=== PATIENT | female | born 1940 | race Caucasian/White ===

== ENCOUNTER 2018-05-10 07:30 | Inpatient (IN) ==
[2018-05-05 16:42] LABS: Appearance,Urine HAZY; Bacteria,Urine 0 /hpf (0); Bilirubin,Urine NEG (NEG); Color,Urine YELLOW; Glucose,Urine (UA) NEGATIVE (NEG); Leukocyte Esterase,Urine 500 /uL (NEG); Mucus,Urine FEW /hpf (0); Protein,Urine NEG (NEG); Specific Gravity,Urine 1.013 (1.000-1.035); Urine Blood 0.03 mg/dL (<0.03); Urine Hyaline Cast 3 /lpf (0-2); Urine RBC 9 /hpf (0-1); Urine Squamous Epithelial Cell 4 /hpf (0-4); Urine Transitional Epi Cells 2 /hpf (0-2); Urine WBC > 182 /hpf (0-4); Urobilinogen,Urine NEG (NEG)
[2018-05-05 17:08] LABS: Basophils # (Auto) 0.1 K/mcL (0.0-0.3); Basophils % (Auto) 0.6 % (0.0-2.0); Eosinophils # (Auto) 0.2 K/mcL (0.0-0.7); Granulocytes % (Auto) 67.2 % (38.0-78.0); Lymphocytes # (Auto) 2.1 K/mcL (1.5-4.8); Lymphocytes % (Auto) 21.8 % (15.5-49.0); Mean Corpuscular HGB Conc 33.1 g/dL (31.0-36.0); Monocytes # (Auto) 0.8 K/mcL (0.1-0.9); Monocytes % (Auto) 8.4 % (1.0-12.0); Platelet Count 321 K/mcL (140-440); RBC 4.75 M/mcL (4.00-5.20); Red Cell Distribution Width 13.8 % (11.5-14.5)
[2018-05-05 17:23] LABS: Blood Urea Nitrogen 19 mg/dl (8-23)
[~2018-05-10 07:30] MED LIST: CELECOXIB 200 MG CAPSULE PO SCH; PREGABALIN 75 MG CAPSULE PO SCH; ceFAZolin 1 GM VIAL IV SCH; oxyCODONE 10 MG TAB.ER.12H PO SCH
[2018-05-10] MEDS ORDERED: GENTAMICIN SULFATE 800 MG/20 ML VIAL IR ONE (13:08)
[2018-05-10] MEDS ORDERED: BENZOCAINE/MENTHOL 1 LOZENGE PO PRN ×2 (14:00→14:10)
[2018-05-10] MEDS ORDERED: IPRATROPIUM/ALBUTEROL 3 ML AMPUL.NEB NEB PRN (14:00)
[2018-05-10] MEDS ORDERED: METHOCARBAMOL 1,000 MG/10 ML VIAL IV PRN (14:00)
[2018-05-10] MEDS ORDERED: fentaNYL 100 MCG/2 ML VIAL IV PRN (14:00)
[2018-05-10] MEDS ORDERED: KETOROLAC 30 MG/ML VIAL IV PRN ×2 (14:00→14:10)
[2018-05-10] MEDS ORDERED: LACTATED RINGERS 1,000 ML IV SCH (14:00)
[2018-05-10] MEDS ORDERED: NALOXONE HCL 0.4 MG/ML VIAL IV PRN (14:00)
[2018-05-10] MEDS ORDERED: ACETAMINOPHEN 1,000 MG/100 ML BOTTLE IV ONE (14:00)
[2018-05-10] MEDS ORDERED: ONDANSETRON 4 MG/2 ML VIAL IV PRN ×2 (14:00→14:10)
[2018-05-10] MEDS ORDERED: LACTATED RINGERS 250 ML IV PRN (14:00)
[2018-05-10] MEDS ORDERED: FLUMAZENIL 0.1 MG/ML ML IV PRN (14:00)
--- NOTE | 2018-05-10 14:08 | Brief Operative Note ---
Pre-op diagnosis: right hip osteoarthritis Post-op diagnosis: same Procedure: right total hip arthroplasty Grafts/Implants: Yes Anesthesia: spinal Complications: none Surgeon: Hermes Davis Rn Document Improvement Specialist: Nirmala Fairchild Estimated blood loss (cc): 250 Specimens Removed/Pathology: none sent Condition: stable Disposition: PACU
[2018-05-10] MEDS ORDERED: POLYETHYLENE GLYCOL 3350 17 GM PACKET PO PRN (14:10)
[2018-05-10] MEDS ORDERED: FLEETS ADULT ENEMA PR PRN (14:10)
[2018-05-10] MEDS ORDERED: MAGNESIUM HYDROXIDE 30 ML ORAL.SUSP PO PRN (14:10)
[2018-05-10] MEDS ORDERED: TRANEXAMIC ACID 1,000 MG/10 ML VIAL IV ONE ×2 (14:10→14:43)
[2018-05-10] MEDS ORDERED: BISACODYL 10 MG SUPP.RECT PR PRN (14:10)
--- NOTE | 2018-05-10 15:18 | XRay Report ---
HISTORY: Postop after right hip arthroplasty FINDINGS: There is a well-positioned newly inserted right total hip prosthesis. There is no fracture or abnormal soft tissue calcification. There is a pre-existing indwelling left hip prosthesis. There has been significant loss of bone around the femoral component of the prosthesis resulting in proximal retraction of the femoral shaft. Greater trochanter is from the femur, retracted superiorly and now abuts the lateral margin of the prosthetic acetabulum. There are broken cerclage wires around the greater trochanter. This is a new finding since 06/16/11. The acetabular component is normal. 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 IMPRESSION: Well-positioned newly inserted right hip prosthesis. Resorption of bone and remodeling of the proximal shaft of the left femur, surrounding the femoral component of the left hip prosthesis Interpreted and Authenticated by: Santos Doan 05/10/18
--- NOTE | 2018-05-10 15:18 | Operative Note ---
DATE OF OPERATION: 05/10/2018 PREOPERATIVE DIAGNOSIS: Degenerative joint disease, right hip. POSTOPERATIVE DIAGNOSIS: Degenerative joint disease, right hip. PROCEDURE PERFORMED: Right total hip arthroplasty. SURGEON: Randall Davis M.D. FACULTY RESEARCH ASSISTANT SURGEON: Nirmala Fairchild PA-C. ANESTHESIA: Spinal with LMA assist. ESTIMATED BLOOD LOSS: 250 mL. COMPLICATIONS: None noted. SPECIMENS REMOVED: None. DRAINS: None. IMPLANTS: DePuy Addison Hole Eliminator PS; DePuy Homewood Gription acetabular shell 54 mm; DePuy [place]wood Altrx polyethylene acetabular liner neutral 36 x 54; DePuy femoral stem Actis Duofix cementless prosthesis size 8 standard collar; DePuy Biolox delta ceramic femoral head +5, 36 mm diameter. INDICATIONS: The patient has had a longstanding history of worsening pain in the hip that has failed conservative treatment. Radiographs have confirmed advanced degenerative joint disease. After a long discussion about treatment options, the patient elected to proceed with a hip arthroplasty. The risks and benefits were discussed with the patient in detail including, but not limited to, the risks of anesthesia, problems with the heart or lungs related to anesthesia, infection, compromise or injury to the nerves and blood vessels, deep venous thrombosis, pulmonary embolism, pneumonia, continued pain after surgery, worsening pain or symptoms after surgery, swelling, loss of motion, instability, leg length discrepancy, and need for repeat surgery. DESCRIPTION OF PROCEDURE: The patient was seen in pre-anesthesia waiting room where all questions were answered and the correct side and site were identified and marked. The patient was then brought to the operating room and administered the anesthetic and given pre-operative antibiotics. A time-out was then called. The patient was placed in the lateral decubitus position with all prominences well-padded using the Miracle frame and the extremity was prepped and draped in the usual sterile fashion. Anesthesia gave the patient 1 gm of tranexamic acid via an intravenous route. A standard posterior approach was made. We dissected through the skin and subcutaneous tissue to the deep fascia. The deep fascia was split in line with the incision and a Charnley retractor was placed. We exposed, tagged, and incised the short external rotators and piriformis tendon and retracted them posteriorly to help protect the sciatic nerve which was palpated throughout the case. We then performed a T-capsulotomy and tagged the capsule edges. Prior to dislocating the hip, we set a length and offset gauge from a Steinmann pin in the iliac wing to a ankit on the greater trochanter. The hip was then dislocated and a femoral neck osteotomy was performed to the pre-surgical templated level off the lesser trochanter. The head was removed and sized. We next turned our attention to the acetabulum. Retractors were placed for optimal visualization. A complete labral excision was performed. The capsule was preserved for later closure. We began reaming using anatomic landmarks with the DePuy Homewood acetabular system. We medialized the cup and reamed up to provide good fill and coverage of the trial. When the trial was stable and appropriately positioned with approximately 20 degrees of anteversion and 45 degrees of abduction, we impacted the DePuy Homewood cup and placed a cancellous screw in the posterior-superior quadrant. Osteophytes were removed from around the shell. We placed the trial liner and turned our attention to the femur. We placed retractors for visualization, internally rotated the femur, and established intramedullary access. We broached using the DePuy Actis stem to a stable platform medial, lateral, and rotationally with the appropriate version. We then performed a calcar reaming off the broach. Trials were then placed and optimized for leg length and stability. We used the leg length and offset guide to confirm our trials. Best stability, length, and offset characteristics were obtained with these sizes. We removed all trials and impacted the polyethylene acetabular liner in a standard fashion after a thorough irrigation. We then impacted the femoral stem to its broached location and placed the head. Final reduction was performed. Again, good stability, leg length, and offset characteristics were noted. We irrigated with three liters of antibiotic saline. We closed the capsule with #2 FiberWire. We closed the fascia with a combination of #2 Stratafix and #0 Vicryl. We closed the subcutaneous tissue and skin in layers out to Dermabond on the skin. A sterile pressure dressing and abduction wedge was applied. All needle and sponge counts were correct. The patient was transferred to the recovery room in stable condition. CATRACHITO:alice Job ID: [id number] Doc ID: [id number] Randall Davis MD
[2018-05-10] MEDS: 0.9 % SODIUM CHLORIDE 1,000 ML IV SCH ×2 (15:20→22:50)
[2018-05-10] MEDS: HYDROcodone/APAP 10/325MG TABLET PO PRN ×3 (16:02→21:39)
[2018-05-10] MEDS: METHOCARBAMOL 750 MG TABLET PO PRN (18:28)
[2018-05-10] MEDS: 0.9 % SODIUM CHLORIDE 10 ML SYRINGE IV SCH (21:40)
[2018-05-10] MEDS: SENNOSIDES 1 TABLET PO SCH (21:40)
[2018-05-10] MEDS: DOCUSATE SODIUM 100 MG CAPSULE PO SCH (21:40)
[2018-05-10] MEDS: ASPIRIN 325 MG ENTERIC COATED TABLET PO SCH (21:40)
[2018-05-10] MEDS: ceFAZolin 1 GM VIAL IV SCH (21:40)
[2018-05-11] MEDS: HYDROcodone/APAP 10/325MG TABLET PO PRN ×5 (03:03→22:16)
[2018-05-11] MEDS: ceFAZolin 1 GM VIAL IV SCH (05:47)
[2018-05-11] MEDS: 0.9 % SODIUM CHLORIDE 10 ML SYRINGE IV SCH ×3 (06:46→20:33)
--- NOTE | 2018-05-11 07:46 | Orthopedic Progress Note ---
Subjective Patient information: Note initiated : 05/11/18 at 7:45 am Service Date, if different from initiated Date: [] Patient: Bettie Vigil 78 y/o F admitted on 05/10/18 for Right Total Hip Arthroplasty. Chief Complaint: [] Interval history: doing well. no complaints Objective Vital signs: Vital Signs Temp Pulse Resp BP BP Pulse Ox 05/11/18 03:05 98.3 F 90 12 134/74 95 05/10/18 23:27 98.3 F 79 12 136/65 94 05/10/18 20:24 97.4 F 91 H 12 123/61 94 05/10/18 18:04 80 05/10/18 18:03 82 119/69 96 05/10/18 17:48 84 117/73 94 05/10/18 17:33 82 148/64 94 05/10/18 17:04 84 148/64 90 05/10/18 16:33 80 166/68 97 05/10/18 16:19 79 182/68 92 05/10/18 16:03 80 176/74 95 05/10/18 15:43 80 05/10/18 15:05 97.6 F 80 17 172/43 94 05/10/18 14:50 96.5 F L 80 16 153/41 94 05/10/18 14:35 97.9 F 85 17 164/62 97 05/10/18 14:30 71 13 144/40 100 05/10/18 14:25 74 15 137/35 98 05/10/18 14:21 97.5 F 81 15 133/40 97 05/10/18 11:13 97.5 F 72 18 150/59 97 05/10/18 10:37 97.5 F 72 18 150/59 97 Intake and Output 05/10/18 05/11/18 05/11/18 21:59 05:59 13:59 Intake Total 2650 Output Total 300 Balance 2350 Intake: IV 100 Oral 700 IV - Manual Only 1850 Output: Estimated Blood Loss 300 Other: # Voids 1 Weight 192 lb Intake & Output: Intake & Output 05/10/18 05/11/18 05/11/18 21:59 05:59 13:59 Intake Total 2650 Output Total 300 Balance 2350 Weight 192 lb Intake: IV 100 Oral 700 IV - Manual Only 1850 Output: Estimated Blood Loss 300 Other: # Voids 1 Incision: Yes healing Incision clean and dry: Yes Dressing: Yes clean, Yes dry, Yes intact Weight bearing status: full Neurological exam IM: Yes abnormal gait, Yes alert, Yes oriented X3, Yes motor sensory intact, Yes neurovascular intact Extremities exam IM: No calf tenderness, Yes Foot pink and warm, Yes neurovascular intact - Labs CBC & BMP: 05/11/18 04:52 05/05/18 14:23 Labs: Orthopedic Labs 05/05/18 14:26 PT 12.8 INR 1.0 05/11/18 05/05/18 04:52 14:23 Hgb 13.3 14.5 Hct 39.3 43.7 Assessment and Plan (1) Hip osteoarthritis pod 1 s/p omari wbat pain control dvt prophylaxis d/c planning Status: Acute
--- NOTE | 2018-05-11 07:47 | Discharge Summary ---
Ortho Discharge - TRANG - Patient Instructions Diet: Regular Diet Activity: activity as tolerated, weight bearing as tolerated Total Hip Protocol: Follow activity instructions as provided by Physical Therapy. Dressing Care: May shower in 2 days - Problem Maintenance (1) Hip osteoarthritis Status: Acute - Follow Up Plan Follow Up Appointments: Nirmala Fairchild PA-C [Physician Awning Maker] - 05/25/18 1:40 pm Disposition: Home, Self-Care Prognosis: Good Rehab Potential: Good I certify that the patient requires SNF services: No Overall status at discharge: patient is progressing back to baseline
[2018-05-11] MEDS: ATORVASTATIN 20 MG TABLET PO SCH ×2 (08:06→08:22)
[2018-05-11] MEDS: DILTIAZEM 180 MG CAP.XL.24H PO SCH (08:07)
[2018-05-11] MEDS: DOCUSATE SODIUM 100 MG CAPSULE PO SCH ×2 (08:07→20:32)
[2018-05-11] MEDS: HYDROCHLOROTHIAZIDE 25 MG TABLET PO SCH (08:08)
[2018-05-11] MEDS: LEVOTHYROXINE 88 MCG TABLET PO SCH ×2 (08:09→08:22)
[2018-05-11] MEDS: ASPIRIN 325 MG ENTERIC COATED TABLET PO SCH ×3 (08:09→20:32)
[2018-05-11] MEDS: ONDANSETRON 4 MG ODT TABLET SL PRN (08:15)
[2018-05-11] MEDS ORDERED: RAMIPRIL 20 MG PO SCH (09:00)
[2018-05-11] MEDS: LISINOPRIL 20 MG TABLET PO SCH (09:02)
[2018-05-11] MEDS: 0.9 % SODIUM CHLORIDE 1,000 ML IV SCH ×3 (10:09→20:33)
[2018-05-11] MEDS ORDERED: PHENYLEPHRINE 10 MG/ML VIAL IV ONE (12:35)
[2018-05-11] MEDS ORDERED: ePHEDrine 50 MG/ML AMPUL IV ONE (12:35)
[2018-05-11] MEDS: SENNOSIDES 1 TABLET PO SCH (20:32)
[2018-05-11] MEDS: METHOCARBAMOL 750 MG TABLET PO PRN (22:16)
[2018-05-12] MEDS: HYDROcodone/APAP 10/325MG TABLET PO PRN ×2 (06:24→11:04)
[2018-05-12] MEDS: 0.9 % SODIUM CHLORIDE 1,000 ML IV SCH (06:25)
[2018-05-12] MEDS: 0.9 % SODIUM CHLORIDE 10 ML SYRINGE IV SCH (06:27)
[2018-05-12] MEDS ORDERED: CALCIUM CARBONATE 500 MG TAB.CHEW CHEWED PRN (06:35)
--- NOTE | 2018-05-12 06:47 | Discharge Summary ---
Providers - Providers Patient information: Note initiated : 05/12/18 at 6:45 am Service Date, if different from initiated Date: [] Patient: Bettie Vigil 78 y/o F admitted on 05/10/18 for Right Total Hip Arthroplasty. Chief Complaint: [POD #2 s/p right TRANG] Patient doing quite well this morning. She is complaining of some reflux symptoms and mild nausea. She denies CP, SOB, numbness, tingling Discharge date: 05/12/18 Hospitalization Hospital course: Patient was brought into OR on 05/10/18 for right TRANG which went on without complication. She was admitted for post op care and management. She stayed for a total of two midnights and will discharge to home today. She will follow up in the office for post op care. Discharge diagnosis: hip osteoarthritis Exam - Exam Incision healing: Yes Incision draining: No Incision red: No Incision swollen: No Incision inflamed: No Clean and dry: Yes Weight bearing status: as tolerated Ortho Discharge - TRANG - Patient Instructions Diet: Regular Diet Activity: activity as tolerated, weight bearing as tolerated Total Hip Protocol: Follow activity instructions as provided by Physical Therapy. Patient Education: Hydrocodone/Acetaminophen (By mouth), Aspirin (By mouth), Total Hip Replacement (DC) Additional Instructions: Discharge Instructions: Do the exercises at home that physical therapy gave you throughout the day. Weight bearing as tolerated. Wear comfortable clothing for physical therapy. You are scheduled to start physical therapy at [facility] ([phone]) on May 16 at 9:30 am, please arrive 15 minutes early for paperwork. Take your prescription, photo ID, insurance cards, and current medication list with you to your first physical therapy appointment. Take your prescription to pick out hand any medication. You have Dermabond (a dressing with a mesh-like appearance), DO NOT remove mesh. Cover site daily with gauze dressing. You may start showering on post op day #2. The Dermabond dressing can get wet, do not scrub dressing. Pat dry, then place new dressing (above). To avoid constipation while taking any narcotic pain medication, take an over the counter stool softener/laxative. Use ice packs as directed, on for 20 minutes at a time throughout the day. This and elevation will help with pain and swelling. Call your physician for fevers above 100.5 or pain not controlled by medication. Your prescriptions are with your discharge information. Some medications were electronically transmitted to your pharmacy of choice. Take Aspirin twice daily, for 30 days, as prescribed to prevent blood clots (see medication list). - Follow Up Plan Follow Up Appointments: Nirmala Fairchild PA-C [Physician County Records Management Officer] - 05/25/18 1:40 pm Disposition: Home, Self-Care Prognosis: Good Rehab Potential: Good I certify that the patient requires SNF services: No - Orders For Discharge Prescriptions: Aspirin [Ecotrin] 325 mg PO BID #60 tab.ec HYDROcodone/APAP 10/325MG [[place] 10-325Mg] 1 - 2 tab PO Q4H PRN #60 tab PRN Reason: Pain Ondansetron [Zofran ODT] 4 mg SL Q4HP PRN #30 tablet PRN Reason: Nausea And Vomiting Additional Discharge Orders: Physical Therapy at Discharge - TRANG Location: None Selected Toilet Riser Discharge Order Location: None Selected Walker Location: None Selected Pending Studies Resuscitation Status Full Code Diet Regular Diet Start WedMay 10 1412 Hydrocodone Bitart/Acetaminophen ([place] 10/325mg) 0 tab PO Q4HP PRN PRN Reason: PAIN LEVEL 3-6 Last Admin: 05/12/18 06:24 Dose: 1 tab Documented by: Admin: 05/11/18 22:16 Dose: 1 tab Documented by: Admin: 05/11/18 17:41 Dose: 2 tab Documented by: ORLYGera Admin: 05/11/18 13:09 Dose: 2 tab Documented by: RICCARDO Cosigned by: ORLYGera Admin: 05/11/18 09:02 Dose: 2 tab Documented by: ORLYGera Admin: 05/11/18 03:03 Dose: 2 tab Documented by: Admin: 05/10/18 21:39 Dose: 2 tab Documented by: Admin: 05/10/18 16:54 Dose: 1 tab Documented by: Admin: 05/10/18 16:02 Dose: 1 tab Documented by: ALTHEA Aspirin (Ecotrin) 325 mg PO BID [facility] Last Admin: 05/11/18 20:32 Dose: 325 mg Documented by: Admin: 05/11/18 08:23 Dose: 325 mg Documented by: RICCARDO Cosigned by: MARIZOL Admin: 05/10/18 21:40 Dose: 325 mg Documented by: EMEKA Atorvastatin Calcium (Lipitor) 20 mg PO DAILY [facility] Last Admin: 05/11/18 08:22 Dose: 20 mg Documented by: RICCARDO Cosigned by: MARIZOL Diltiazem HCl (Cardizem Cd) 360 mg PO DAILY [facility] Last Admin: 05/11/18 08:07 Dose: 360 mg Documented by: RICCARDO Cosigned by: MARIZOL Docusate Sodium (Colace) 100 mg PO BID [facility] Last Admin: 05/11/18 20:32 Dose: 100 mg Documented by: Admin: 05/11/18 08:07 Dose: 100 mg Documented by: RICCARDO Cosigned by: MARIZOL Admin: 05/10/18 21:40 Dose: 100 mg Documented by: EMEKA Hydrochlorothiazide (Oretic) 25 mg PO DAILY [facility] Last Admin: 05/11/18 08:08 Dose: 25 mg Documented by: RICCARDO Cosigned by: MARIZOL Sodium Chloride (Sodium Chloride 0.9%) 1,000 mls @ 125 mls/hr IV .Q8H [facility] Last Admin: 05/12/18 06:25 Dose: Not Given Documented by: Admin: 05/11/18 20:33 Dose: Not Given Documented by: Admin: 05/11/18 15:47 Dose: Not Given Documented by: Talia Admin: 05/11/18 10:09 Dose: Not Given [facility]: [facility] Admin: 05/10/18 22:50 Dose: Not Given Documented by: Admin: 05/10/18 15:20 Dose: 125 mls/hr Documented by: ALTHEA Levothyroxine Sodium (Synthroid) 88 mcg PO ACB [facility] Last Admin: 05/11/18 08:22 Dose: 88 mcg Documented by: RICCARDO Cosigned by: MARIZOL Lisinopril (Zestril) 40 mg PO DAILY [facility] Last Admin: 05/11/18 09:02 Dose: 40 mg Documented by: [facility] Methocarbamol (Robaxin) 750 mg PO Q6HP PRN PRN Reason: Muscle Spasm Last Admin: 05/11/18 22:16 Dose: 750 mg Documented by: Admin: 05/10/18 18:28 Dose: 750 mg Documented by: EMEKA Morphine Sulfate (Morphine) 0 mg IV Q1HP PRN PRN Reason: PAIN LEVEL > 6 Last Admin: 05/10/18 18:28 Dose: 2 mg Documented by: EMEKA Ondansetron HCl (Zofran Odt) 4 mg SL Q4HP PRN PRN Reason: Nausea And Vomiting Last Admin: 05/11/18 08:15 Dose: 4 mg Documented by: RICCARDO Cosigned by: MARIZOL Garcia (Senokot) 2 tab PO HS [facility] Last Admin: 05/11/18 20:32 Dose: 2 tab Documented by: Admin: 05/10/18 21:40 Dose: 2 tab Documented by: EMEKA Sodium Chloride (Saline Flush) 10 ml IV Q8 [facility] Last Admin: 05/12/18 06:27 Dose: 10 ml Documented by: Admin: 05/11/18 20:33 Dose: 10 ml Documented by: Admin: 05/11/18 14:22 Dose: 10 ml Documented by: [email or web address] Admin: 05/11/18 06:46 Dose: 10 ml Documented by: [email or web address] Admin: 05/10/18 21:40 Dose: Not Given Documented by: EMEKA Shift Summary 05/12/18 04:15 Shift Summary by Dia Hernandez A&Ortiz. Did well tonight. So far only medicated with 1 tab [place] and 1 Robaxin for pain. Voiding well in bathroom. Up with SBA and FWW. Dressing to right hip, CDI. Ambulated in halls to [facility] and back to room. Ice pack used. Tolerating diet with no nausea. AV boots in place. Should d/c today. Initialized on 05/12/18 04:15 - END OF NOTE
[2018-05-12] MEDS: DILTIAZEM 180 MG CAP.XL.24H PO SCH (08:50)
[2018-05-12] MEDS: DOCUSATE SODIUM 100 MG CAPSULE PO SCH (08:50)
[2018-05-12] MEDS: HYDROCHLOROTHIAZIDE 25 MG TABLET PO SCH (08:51)
[2018-05-12] MEDS: ASPIRIN 325 MG ENTERIC COATED TABLET PO SCH (08:51)
[2018-05-12] MEDS: LISINOPRIL 20 MG TABLET PO SCH (08:51)
[2018-05-12] MEDS: LEVOTHYROXINE 88 MCG TABLET PO SCH (08:51)
[2018-05-12] MEDS: ATORVASTATIN 20 MG TABLET PO SCH (08:51)
[2018-05-12] MEDS: METHOCARBAMOL 750 MG TABLET PO PRN (08:51)
--- NOTE | 2018-05-12 10:33 | XRay Report ---
HISTORY: Clicking in the right hip following recent insertion of a right hip prosthesis FINDINGS: Patient has a well-positioned newly inserted right total hip prosthesis. There is no malalignment or fracture. There is persistent subcutaneous air around the joint following the recent surgery. Left hip prosthesis is unchanged in alignment. There has been no change from 05/10/18. IMPRESSION: Well-positioned right hip prosthesis Interpreted and Authenticated by: Santos Doan 05/12/18
[2018-05-12] MEDS: ONDANSETRON 4 MG ODT TABLET SL PRN (10:54)
== END 2018-05-12 13:40 | disposition home or self-care (01) | DRG 470 ==
LOC: MEDSUR 10:26
PROVIDERS: ADMIT Orthopaedic Surgery Sports Medicine; ATTEND Orthopaedic Surgery Sports Medicine